=== PATIENT | female | born 1990 ===

== ENCOUNTER 2025-07-02 13:28 | Outpatient (CLI) | payer OTHER | END 2025-07-02 13:44 | disposition home or self-care (01) | LOC: NST 13:28 | PROVIDERS: ATTEND Obstetrics & Gynecology | DX: Z34.83 Encounter for supervision of other normal pregnancy, third trimester (principal) ==

== ENCOUNTER 2025-07-02 14:38 | Inpatient (IN) | payer OTHER ==
[~2025-07-02] VITALS: Ht 162.6 cm; Wt 80.7 kg
[2025-07-12] VITALS (9 sets, daily range): BP systolic 129–150; BP diastolic 67–89; O2SAT 98
[2025-07-12] MEDS ORDERED: PRENATA CHEWAB1 EACH PO (03:17)
[2025-07-12] MEDS ORDERED: MORPHINE SULFATE 4 MG/ML CARTRIDGE IV PRN (03:30)
[2025-07-12] MEDS ORDERED: RINGERS SOLUTION,LACTATED 1,000 ML IV SCH (03:30)
[2025-07-12 04:47] LABS: BASO % 0.3 % (0.1-1.2); EOS # 0.06 (0.04-0.54); EOS % 0.5 % (0.7-7.0); LYMPH # 1.59 (1.18-3.74); LYMPH % 13.9 % (19.3-53.1); MEAN PLATELET VOLUME 11.40 fl (9.4-12.4); MONO # 0.48 (0.24-0.82); MONO % 4.2 % (4.7-12.5); NEUT # 9.19 (1.56-6.13); NEUT % 80.1 % (34.0-71.1); RED CELL DISTRIBUTION WIDTH 15.0 % (11.6-14.4)
[2025-07-12 04:50] LABS: URINE APPEARANCE Clear; URINE BILIRRUBIN Negative (NEGATIVE); URINE BLOOD Negative; URINE COLOR Yellow; URINE GLUCOSE Negative (NEGATIVE); URINE KETONE Negative (NEGATIVE); URINE LEUKOCYTE Negative; URINE NITRATE Negative; URINE PROTEIN Negative (NEGATIVE); URINE UROBILINOGEN 0.2 E.U./dl
[2025-07-12 04:53] LABS: URINE BACTERIA 462.8 uL (0.0-1933); URINE EPITHELIAL CELLS 11.9 uL (0.0-38.8); URINE WBC 4.6 uL (0.0-23.2)
[2025-07-12 05:12] LABS: INR < 0.93
[2025-07-12 05:14] LABS: URINE CAST 0.00 uL (0.0-1.40); URINE RBC 0.8 uL (0.0-20.8)
[2025-07-12 05:17] LABS: ALT/SGPT 189.0 U/L (12-78); AST/SGOT 121.0 U/L (15-37); BILIRUBIN TOTAL 0.48 mg/dL (0.3-1.2); BUN CREA RATIO 14.0 (7.0-25.0); CREATININE SERUM 0.84 mg/dL (0.55-1.02); GFR 76.72; GLOBULINA 3.4 G/DL (2.4-3.5); GLUCOSE FASTING 87.0 mg/dL (65-100); OSMOLALITY SERUM 279.0 MOSM/KG (275-295)
[2025-07-12] MEDS ORDERED: OXYTOCIN 500 ML IV ONE (12:15)
[2025-07-12] MEDS ORDERED: CHLORHEXIDINE GLUCONATE 120 ML BOTTLE TP SCH (19:15)
[2025-07-12] MEDS ORDERED: OXYTOCIN 1,000 ML IV SCH (19:15)
[2025-07-13 01:17] VITALS: BP 140/87; O2SAT 99
[2025-07-13 07:30] LABS: BASO % 0.2 % (0.1-1.2); EOS # 0.04 (0.04-0.54); EOS % 0.3 % (0.7-7.0); LYMPH # 2.00 (1.18-3.74); LYMPH % 13.4 % (19.3-53.1); MEAN PLATELET VOLUME 11.60 fl (9.4-12.4); MONO # 0.70 (0.24-0.82); MONO % 4.7 % (4.7-12.5); NEUT # 12.07 (1.56-6.13); NEUT % 80.7 % (34.0-71.1); RED CELL DISTRIBUTION WIDTH 14.8 % (11.6-14.4)
[2025-07-13 08:09] VITALS: BP 129/80
[2025-07-13 15:29] VITALS: BP 127/85
[2025-07-13 20:02] VITALS: BP 145/85
[2025-07-14 00:06] VITALS: BP 126/77
[2025-07-14 08:00] VITALS: BP 131/79
== END 2025-07-14 13:14 | disposition home or self-care (01) | DRG 807 ==
LOC: EDUNIT# 07-03 13:30 → LDR 07-12 03:07 → OB/GYN 07-12 19:40 → LDR 07-17 13:30
PROVIDERS: Obstetrics & Gynecology; ADMIT Obstetrics & Gynecology; ATTEND Obstetrics & Gynecology
PROC: 10E0XZZ Delivery of Products of Conception, External Approach (ICD-10-PCS; principal; 2025-07-12)
PROC: 0KQM0ZZ Repair Perineum Muscle, Open Approach (ICD-10-PCS; 2025-07-12)
PROC: 0UQMXZZ Repair Vulva, External Approach (ICD-10-PCS; 2025-07-12)
PROC: 4A1HXCZ Monitoring of Products of Conception, Cardiac Rate, External Approach (ICD-10-PCS; 2025-07-12)
DX: O70.1 Second degree perineal laceration during delivery (principal); O71.82 Other specified trauma to perineum and vulva; Z37.0 Single live birth; Z3A.39 39 weeks gestation of pregnancy